=== PATIENT | female | born 1945 | race Caucasian/White ===

== ENCOUNTER → 2016-11-14 | Outpatient (CLI) | payer OTHER ==
[~2016-11-14] MED LIST: ALPR0.25 PO; ASPI-232 PO; B-COTAB18 PO; CHOL100010 PO; CHRO1CAP PO; CRAN1CAP14 PO; DICL-201 PO; LEVO50TA6 PO; LISI-461 PO; LISI5TAB PO; MULT-506 PO; OMEGCAP2 PO; [UNRECOGNIZED DRUG - CODE] PO
== END | disposition home or self-care (01) ==
LOC: C.MAMM 14:15
PROVIDERS: ATTEND Family Medicine
DX: Z78.0 Asymptomatic menopausal state (principal)

== ENCOUNTER → 2016-11-27 | Outpatient (CLI) | payer OTHER | END | disposition home or self-care (01) | LOC: C.RDSM 08:45 | PROVIDERS: ATTEND Physical Medicine & Rehabilitation Sports Medicine | DX: Z96.653 Presence of artificial knee joint, bilateral (principal); M25.561 Pain in right knee; M25.562 Pain in left knee ==

== ENCOUNTER → 2017-03-05 | Outpatient (CLI) | payer OTHER | END | disposition home or self-care (01) | LOC: C.RDSM 09:23 | PROVIDERS: ATTEND Physical Medicine & Rehabilitation Sports Medicine | DX: M25.512 Pain in left shoulder (principal) ==

== ENCOUNTER → 2017-03-08 | Outpatient (CLI) | payer OTHER ==
--- NOTE | 2017-03-08 14:35 | MAMMOGRAPHY REPORT ---
BILATERAL DIGITAL SCREENING MAMMOGRAM WITH CAD: 03/08/2017 CLINICAL HISTORY: Routine screening. TECHNIQUE: Current study was also evaluated with a Computer Aided Detection (CAD) system. Bilateral CC and MLO views were obtained. COMPARISON: Comparison is made to exams dated: 03/06/2016 mammogram, 03/05/2015 mammogram, 03/04/2014 m ammogram, 02/21/2013 mammogram, 02/21/2012 mammogram, and 01/31/2011 mammogram - [facility] enter. BREAST COMPOSITION: The tissue of both breasts is almost entirely fatty. FINDINGS: No suspicious masses, calcifications, or areas of architectural distortion are noted in ei ther breast. There has been no significant interval change compared to prior exams. Scattered bilater al benign-appearing calcifications are not significantly changed. IMPRESSION: ACR BI-RADS CATEGORY 2: BENIGN There is no mammographic evidence of malignancy. A 1 year screening mammogram is recommended. The pa tient will receive written notification of the results. Approximately 10% of breast cancers are not detected with mammography. A negative mammographic report should not delay biopsy if a clinically suggestive mass is present. Rakel Gaytan M.D. /:03/08/2017 12:24:44 Household Appliance Installer: Sonia HOUSER(Sydnie)(M), [facility] letter sent: Normal 1/2 BI-RADS Code: ACR BI-RADS Category 2: Benign
== END | disposition home or self-care (01) ==
LOC: C.MAMM 10:46
PROVIDERS: ATTEND Family Medicine
DX: Z12.31 Encounter for screening mammogram for malignant neoplasm of breast (principal)

== ENCOUNTER → 2017-03-15 | Outpatient (CLI) | payer OTHER ==
[~2017-03-15] MED LIST changes: +GADAVIST IV PRN
--- NOTE | 2017-03-15 10:56 | DIAGNOSTIC IMAGING REPORT ---
FLUOROSCOPIC GUIDED LEFT SHOULDER ARTHROGRAM FLUOROSCOPY TIME: 12 seconds HISTORY: Shoulder pain. IMPINGEMENT L Shoulder, spinal STENOSIS PROCEDURE: After obtaining written informed consent, the patient was placed supine on the fluoroscopy table. A suitable site for needle insertion was marked using fluoroscopic guidance. The left shoulder was prepped and draped in the usual sterile fashion. 1% lidocaine was used for skin, subcutaneous and deep soft tissue anesthesia. Under intermittent fluoroscopic guidance, a 22 gauge 2.5 inch spinal needle was inserted into the left glenohumeral joint. A total of 14 cc of one-to-one mixture of dilute Magnevist (0.1 cc in 10 cc saline) and Optiray 300 were injected. The needle was then removed. There were no apparent complications. The patient was transported to for further imaging. IMPRESSION: Fluoroscopic-guided left shoulder arthrogram without immediate complication. Total injected volume was 14 cc. MR portion of the examination will be dictated separately. Electronically signed by: pAolinar Rowe M.D. 03/15/2017 10:54 AM Dictated Date/Time: 03/15/2017 10:54 AM
--- NOTE | 2017-03-15 11:20 | DIAGNOSTIC IMAGING REPORT ---
LEFT UPPER EXTREMITY JOINT W/ HISTORY: IMPINGMENT L SHOULDER,SPINAL STENOSIS COMPARISON: Left shoulder radiograph 03/05/2017. TECHNIQUE: Multiplanar, multi sequence MRI of the left shoulder was performed following the intra-articular administration of solution containing 0.1 mL Gadavist. FINDINGS: ROTATOR CUFF: There is a high-grade partial to near full-thickness equivalent tear of the articular anterior insertional fibers of the supraspinatus tendon measuring 6 x 7 mm in transverse and AP dimensions respectively (nicely seen on image 8 of the sagittal series and image 15 of the coronal series). There is no associated retraction or muscular atrophy. Additionally, there is moderate to severe tendinopathy with high-grade partial thickness tearing involving the articular fibers of the conjoined and infraspinatus tendon measuring up to 6 x 1.9 cm in transverse and AP dimensions respectively. There is a 5 x 6 x 6 mm calcification within the posterior insertional infraspinatus tendon fibers seen on image 13 of the coronal PD series and also correlated on comparison left shoulder radiographs compatible with infraspinatus calcific tendinosis. There is minimal tendinosis of the subscapularis tendon without full-thickness tear. BICEPS TENDON: The longhead biceps tendon is intact. No evidence of tendinosis. The biceps zena and anchor are intact. LABRUM: There is multifocal irregularity, fraying and degeneration of the labrum, notably within the superior quadrants. No large displaced labral fragment or para labral cyst identified. GLENOHUMERAL JOINT: There is mild to moderate osteoarthritis of the glenohumeral joint with moderate amount of bone marrow edema seen within the anterior superior glenoid. There is no loose body or debris present within the glenohumeral joint. ACROMIOCLAVICULAR JOINT: The AC joint is intact without significant degenerative change or mass effect. No evidence of os acromiale. There is trace amount of subacromial/subdeltoid bursitis. OUTLET SPACES: The suprascapular notch and quadrilateral space are without obstructing or space occupying lesions. BONE MARROW: No focal fracture or marrow occupying lesion. SOFT TISSUES: The periarticular soft tissues are unremarkable. IMPRESSION: 1. High-grade partial to near full-thickness equivalent tear of the anterior insertional fibers of the supraspinatus tendon, 6 x 7 mm with background moderate to severe tendinopathy. No associated retraction or muscle atrophy. 2. Severe tendinopathy of the conjoined and infraspinatus tendon with large irregular high-grade partial-thickness articular sided tear measuring up to 1.9 cm in AP dimension. 3. Calcific tendinosis of the posterior infraspinatus tendon. 4. Focal moderate amount of bone marrow edema within the anterosuperior glenoid is likely degenerative with posttraumatic contusion also in the differential. The above report was generated using voice recognition software. It may contain grammatical, syntax or spelling errors. Electronically signed by: rEnie Qiu 03/15/2017 11:19 AM Dictated Date/Time: 03/15/2017 11:00 AM
== END | disposition home or self-care (01) ==
LOC: C.MRIBC 09:43
PROVIDERS: ATTEND Physical Medicine & Rehabilitation Sports Medicine
DX: M75.42 Impingement syndrome of left shoulder (principal); M48.02 Spinal stenosis, cervical region

== ENCOUNTER → 2017-03-23 | Outpatient (CLI) | payer OTHER ==
[~2017-03-23] MED LIST changes: -CHRO1CAP PO; -CRAN1CAP14 PO; -GADAVIST IV PRN; -LISI-461 PO
[2017-03-23 14:47] LABS: BASO % 0.2 %; BASO ABS # 0.01 K/uL (0-0.2); COMPLETE YES; EOS % 0.7 %; HEMATOCRIT 42.8 % (37-47); IG% 0.2 %; LYMPH % 49.5 %; MEAN CELL VOLUME 93.9 fL (80-100); MEAN CORPUSCULAR HEMOGLOBIN 30.5 pg (25-34); MEAN CORPUSCULAR HGB CONC 32.5 g/dl (32-36); MEAN PLATELET VOLUME 10.7 fL (7.4-10.4); MONO % 5.3 %; NEUT % 44.1 %; PLATELET COUNT 246 K/uL (130-400); RED BLOOD COUNT 4.56 M/uL (4.2-5.4); WHITE BLOOD COUNT 5.86 K/uL (4.8-10.8)
[2017-03-23 15:05] LABS: BLOOD UREA NITROGEN 15 mg/dl (7-18); GLUCOSE 96 mg/dl (70-99)
[2017-03-23 15:06] LABS: BUN/CREATININE RATIO 18.3 (10-20); CALCIUM 10.3 mg/dl (8.5-10.1); CARBON DIOXIDE 30 mmol/L (21-32); CHLORIDE 105 mmol/L (98-107); CREATININE 0.82 mg/dl (0.60-1.20); POTASSIUM 4.2 mmol/L (3.5-5.1); SODIUM 142 mmol/L (136-145)
== END | disposition home or self-care (01) ==
LOC: C.LAB1850 13:49
PROVIDERS: ATTEND Physical Medicine & Rehabilitation Sports Medicine
DX: Z01.818 Encounter for other preprocedural examination (principal)

== ENCOUNTER → 2017-04-17 | Day surgery (SDC) | payer OTHER ==
[2017-03-22 10:31] VITALS: Ht 160 cm; Wt 75.0 kg
[~2017-04-17] VITALS: Ht 160 cm; Wt 75.0 kg
[~2017-04-17] MED LIST changes: +ATROPINE SULFATE 0.1 MG/ML 5ML SYR IV PRN; +BUPIVACAINE/EPINEPHRINE 0.5% MPF 1:200,000 10 ML VIAL ONE; +CEFAZOLIN 2000 MG/60 ML D5W IV SCH; +EpHEDrine SULFATE INJ 50 MG/ML AMP IV PRN; +EpINEphrine HCL INJ 1 MG/ML 5ML SYRINGE ONE; +FENTANYL CITRATE INJ 50 MCG/1 ML 2 ML VIAL IV PRN; +FENTANYL CITRATE INJ 50 MCG/1 ML 2 ML VIAL ONE; +FLUMAZENIL 0.1 MG/1 ML 10 ML VIAL IV PRN; +HYDROmorphone INJ 2 MG/ML SYR/VIAL IV PRN; +LABETALOL HCL IV 5 MG/ML 20ML IV PRN; +LACTATED RINGER'S 1000ML 1,000 ML IV SCH; +LEVOFLOXACIN 500 MG TAB PO SCH; +LIDOCAINE HCL 2% 2 ML VIAL (20MG/ML) ONE; +MEPERIDINE HCL 25 MG/ML CARP IV PRN; +MIDAZOLAM HCL 1 MG/ML 2ML VIAL ONE; +NALOXONE HCL 0.4 MG/1 ML VIAL/CARP IV PRN; +ONDANSETRON INJ 2 MG/ML 2 ML VIAL IV PRN; +OXYCODONE/ACETAMINOPHEN 5-325 TAB PO PRN; +PHENYLEPHRINE 100MCG/ML 5ML SYR IV PRN; +PROPOFOL IV EMULSION 10 MG/ML 20 ML VIAL IV ONE; +ROPIVACAINE 0.5% 5 MG/ML 30 ML VIAL ONE; +SODIUM CHLORIDE 0.9% 1000ML 1,000 ML IV SCH; +SODIUM CHLORIDE 0.9% INJ 10 ML VIAL ONE
--- NOTE | 2017-04-17 06:52 | History & Physical Bridge Note ---
H&P Re-Evaluation Bridge Note: I have examined the patient, reviewed the History & Physical and in the interval since the performance of the History & Physical I have noted the following changes of clinical significance:consent obtained . No changes noted
--- NOTE | 2017-04-17 06:53 | Discharge Instructions ---
Discharge Instructions Date of Service Apr 17, 2017. Visit Reason for Visit: Left Shoulder Rotator Cuff Tear Discharge Discharge Diagnosis / Problem: same Discharge Goals Goal(s): Decrease discomfort, Improve function Medications Stopped Medications Name(s): all meds stopped on 04/12 except for lisinopril and levothyroxine. Restart Stopped Medication(s): resume all meds as scripts direct Activity Recommendations Activity Limitations: as noted below Lifting Limitations: until after follow-up appointment Exercise/Sports Limitations: until after follow-up appointment May Resume Sexual Activity: when tolerated Shower/Bathe: keep incision dry Driving or Machine Use: resume 1 day after discharge Anesthesia . Post Anesthesia Instructions: If you have had General Anesthesia or IV Sedation: * Do not drive today. * Resume driving when surgeon permits. * Do not make important decisions or sign legal documents today. * Call surgeon for: 1. Temperature elevations greater than 101 degrees F. 2. Uncontrollable pain. 3. Excessive bleeding. 4. Persistent nausea and vomiting. 5. Medication intolerance (nausea, vomiting or rash). * For nausea and vomiting use only clear liquids such as: tea, soda, bouillon until nausea subsides, then gradually increase diet as tolerated. * If you have any concerns or questions, call your surgeon's office. If physician is unavailable and it is an emergency, call 911 or go to the nearest emergency room. . Instructions / Follow-Up Instructions / Follow-Up The following are instructions to follow after "Shoulder Surgery" including, Acromioplasty, Rotator Cuff Repair and Instability Surgery ACTIVITY RECOMMENDATIONS: * Minimize activity after surgery. * No excessive walking, jogging, sports or laboring. * Return to activity is individualized depending on the patient and type of surgery. * Driving is not permitted until at least your first post operative visit. Please ask your doctor when it is safe to resume driving. * Expect increased discomfort with increased activity. Continue to ice the shoulder as needed. SCHOOL/WORK RECOMMENDATIONS: * You may return to sedentary work or school when you are feeling more comfortable. This is usually 3-7 days after surgery. MEDICATIONS: * You will have a prescription for pain medication and an anti-inflammatory medication after surgery. * Use the pain medication for severe pain and the anti-inflammatory for less severe pain. Once the pain medication has run out, try to use the anti-inflammatory medication. If this is not effective, contact the office for assistance. * The pain medication may cause nausea, constipation and drowsiness. You should see how they affect you before driving or similar activity. * The anti-inflammatory medication may cause stomach upset and bleeding. If this occurs let your doctor know immediately . * Take a stool softener like Colace or a laxative like Senokot to prevent constipation. DIET: * Resume previous diet. SPECIAL CARE: ICE: You have the option of an ice cooler, gel packs or ice bags. * If you have an ice cooler, refer to the instructions for that device. The ice cooler may be used continuously. * If you do not have an ice cooler, you will need to use ice bags or gel packs. Do not apply ice directly to the skin. Use a thin dressing or anayeli shirt between the skin and ice bag. Apply ice for 20-30 minutes and repeat every 2-4 hours. This is especially important for the first 7-10 days after surgery. Once the pain improves, use ice as needed. ELEVATION: * You may be more comfortable sleeping in an upright position. Use the sling to elevate your arm. DRESSING: * Your dressing will be changed at your first therapy appointment approximately 4-5 days after surgery. Band-aids, tape strips or gauze may be applied. You may then change your dressing daily. * Reapply dressing followed by the EBIce cooling pad (if chosen) and then the sling. * Always wash your hands prior to touching the incision area. * Once the stitches are removed, you may leave the wound open to air or cover with gauze. * Expect some bloody drainage for the first few days after surgery. * Leave the tape strips, if present, in place for 5-7 days. * Band-aids and gauze may be changed daily. * There may be a gauze pad in your armpit area. This can be changed daily or replaced by a dry washcloth. SLING/BRACE: * You will need to use a sling or brace after surgery. The length of time the sling is used is dependent upon the type of surgery performed. * Arthroscopic Acromioplasty requires use of the sling for 2-4 weeks for comfort. * Labral procedures and Rotator Cuff Repairs require use of the sling for a longer period of time. Please check with your doctor prior to discontinuing the sling. BATHING: * You may shower or sponge-bathe immediately after surgery. The post operative shoulder dressing is mostly water-tight. You may shower right over this dressing, but be reasonably careful not to get the gauze or incision wet. * Once the dressing has been changed on the fourth or fifth day after surgery, you may shower and get the incision wet. * Wash with regular soap and water. * Do not bathe (submerge the incision), soak, swim or use a hot tub until the incision is completely healed over with normal skin and the doctor has given the OK to proceed. * There is no need to apply any ointments, powders or salves to your incision. * Do not apply alcohol or hydrogen peroxide directly to the incision. * Diluted peroxide (50:50 mixture with sterile saline) may be used to clean dried blood from around the incision area. THERAPY: * You will begin therapy four or five days after surgery. * Organized therapy with the therapist is important for the first 2-4 months after surgery depending on the type of procedure. During that time you will attend therapy 1-3 times per week. * You will also need to do daily exercises for range of motion and strength as instructed. * Patients who have a Capsular Shift Procedure will need to abide by temporary range of motion limitations. * Patients having Rotator Cuff Surgery are not allowed to actively lift their arms until 4-6 weeks after surgery. * Please check with your doctor regarding appropriate motion restrictions. FOLLOW UP VISIT: * If not already scheduled, please call the office at to schedule a follow-up appointment for 10 days after surgery and monthly thereafter. Diet Recommendations Recommended Home Diet: resume previous diet Procedures Procedures Performed: see op note Pending Studies Studies pending at discharge: no Medical Emergencies . Who to Call and When: Medical Emergencies: If at any time you feel your situation is an emergency, please call 911 immediately. . Non-Emergent Contact Non-Emergency issues call your: Specialist Call Non-Emergent contact if: temperature is above 101.5, wound has increased drainage, wound has increased redness . . "Provider Documentation" section prepared by Jose Christianson. .
--- NOTE | 2017-04-17 08:28 | [facility] Post Operative Brief Note ---
Immediate Operative Summary Operative Date Apr 17, 2017. Pre-Operative Diagnosis Left shoulder rotator cuff disease/gh djd/biceps tendonopathy Post-Operative Diagnosis Same as pre-op Procedure(s) Performed Left Shoulder Examine under Anesthesia, Arthroscopy, Subacromial Debridement, Biceps Tenotomy, Glenoid Humeral debridement Surgeon Dr. Christianson Vice President Financial Surgeon(s) Marcus Silva PA-C Estimated Blood Loss Trace Findings djd/tendonopathy Fluids (cc crystalloids) 700cc Specimens None Drains none Anesthesia block/lma Complication(s) None Disposition Recovery Room / PACU
--- NOTE | 2017-04-17 08:48 | OPERATIVE REPORT ---
DATE OF OPERATION: 04/17/2017 PREOPERATIVE DIAGNOSIS: Chronic left shoulder pain with impingement syndrome, rotator cuff tendinopathy, biceps tendonopathy and glenohumeral arthritis. POSTOPERATIVE DIAGNOSIS: Same. OPERATION PERFORMED: 1. Exam under anesthesia. 2. Diagnostic arthroscopy. 3. Arthroscopic glenohumeral debridement. 4. Arthroscopic biceps tenotomy. 5. Arthroscopic subacromial debridement with light decompression. SURGEON: Dr. Christianson. DATA ANALYST REPORT WRITER: Marcus Silva PA-C. No resident or fellow available. PERIOPERATIVE SITUATION: Medically cleared female with intractable shoulder pain had physical exam, x-ray, and MRI scan consistent with the above diagnosis. At this point in time she is not amenable to joint replacement, wanted to try to see if we can get the shoulder pain to dissipate with minimal intervention. She did have enough tendinopathy in the biceps and the rotator cuff that potentially there could be a tear that could be repaired. She wished to proceed with elective surgery at this point in time with this fashion and this intention. OPERATION AND FINDINGS: OPERATION: The patient appropriately identified, site verified, consent verified, 2 grams of Ancef confirmed as being given. The left shoulder was examined revealing no instability. She had forward flexion to 160 degrees, abduction 155 to 160 degrees, rotation arc 50-60 degrees. There was no instability. She was then placed in a beach chair position and the left upper extremity prepped and draped in usual routine fashion. A posterior portal made 2 cm medial and inferior to posterolateral tip of the acromion, joint entered without difficulty. There was good substance to the cuff. The anterior portal was then made just off the edge of the AC joint. There was marked synovitis. There was marked deformation and change about the superior labrum and the biceps anchor. This was all debrided. The biceps was then released. There was significant articular disease of the superior half of the glenoid and the humeral head. This was all debrided. The inferior half was normal of the glenoid. The majority of the humeral head was normal. The rotator cuff attachment had some minor fraying, PASTA type lesion was debrided but there was good fibers intact from the rotator interval all the way through the posterior cuff. Subacromial space was then entered. There was bursal sided fraying of the rotator cuff. This was debrided with the shaver and thermal device. The CA ligament was frayed. This was debrided with a thermal device. Small hook of the acromion was then incidentally debrided. The bursa was excised. The AC joint was left alone. The cuff was thoroughly inspected with both abduction, adduction, internal and external rotation. There was no full thickness retracted tear. The area of the calcific tendinopathy noted on x-ray was not easily identifiable. It was elected not to take the cuff down to find this. This was based on the amount of degenerative disease noted. The procedure was then terminated. All instruments and fluid were removed. The portals closed with 4-0 nylon, dressed with Xeroform, 4 x 4 gauze, sterile Webril, ABD pads and a bulky dressing. The arm was then placed in a sling. The patient will have sling for comfort and advanced rehab to tolerance. At this point in time, it is unclear whether or not she will need joint replacement in the future, but arthroscopic assessment puts her at a high probability. I attest to the content of the Intraoperative Record and any orders documented therein. Any exception s are noted below.
--- NOTE | 2017-04-17 09:13 | Anesthesia Progress Nt - [facility] ---
Anesthesia Post Op Note Date & Time Apr 17, 2017 at 09:13 Vital Signs Pain Intensity: 0 Vital Signs Past 12 Hours Date Time Temp Pulse Resp B/P (MAP) Pulse Ox O2 Delivery O2 Flow Rate FiO2 04/17/17 09:08 77 18 96 04/17/17 09:08 76 18 04/17/17 09:07 68 6 97 04/17/17 09:07 68 6 04/17/17 09:06 163/79 04/17/17 09:05 68 12 04/17/17 09:05 70 12 98 04/17/17 09:01 161/64 04/17/17 09:00 82 16 100 04/17/17 09:00 81 16 04/17/17 08:59 69 11 100 04/17/17 08:59 70 11 04/17/17 08:56 155/89 04/17/17 08:54 73 15 100 04/17/17 08:54 73 15 04/17/17 08:53 74 13 04/17/17 08:53 73 13 100 04/17/17 08:52 78 17 04/17/17 08:52 80 17 100 04/17/17 08:51 165/80 04/17/17 08:47 70 13 100 04/17/17 08:47 71 13 04/17/17 08:46 164/84 04/17/17 08:42 76 18 04/17/17 08:42 73 18 100 04/17/17 08:41 157/87 04/17/17 08:37 95 14 99 04/17/17 08:37 88 14 04/17/17 08:36 152/81 04/17/17 08:36 36.4 83 12 152/81 95 Mask 8 04/17/17 07:42 0 04/17/17 07:42 12 04/17/17 07:41 74 19 97 04/17/17 07:41 74 04/17/17 07:37 65 04/17/17 07:37 64 15 97 04/17/17 07:36 146/62 04/17/17 07:31 141/64 04/17/17 07:27 58 0 97 04/17/17 07:27 59 3 97 04/17/17 07:26 113/59 04/17/17 07:25 59 04/17/17 07:25 60 0 96 04/17/17 07:24 59 04/17/17 07:24 57 0 96 04/17/17 07:24 59 04/17/17 07:24 57 0 96 04/17/17 07:21 128/65 04/17/17 07:21 128/65 04/17/17 07:16 70 10 194/72 99 04/17/17 07:16 70 10 194/72 99 04/17/17 07:16 60 0 98 04/17/17 07:16 60 0 98 04/17/17 07:06 59 04/17/17 07:06 59 0 96 04/17/17 07:06 59 04/17/17 07:06 59 0 96 04/17/17 07:01 58 0 97 04/17/17 07:01 58 0 96 04/17/17 07:01 58 0 97 04/17/17 07:01 58 0 96 04/17/17 06:51 10 04/17/17 06:51 57 10 04/17/17 06:51 57 10 04/17/17 06:51 10 04/17/17 06:30 36.4 64 16 151/92 (111) 97 Room Air Notes Mental Status: alert / awake / arousable, participated in evaluation Pt Amnestic to Procedure: Yes Nausea / Vomiting: adequately controlled Pain: adequately controlled Airway Patency, RR, SpO2: stable & adequate BP & HR: stable & adequate Hydration State: stable & adequate Anesthetic Complications: no major complications apparent
[2017-04-17 09:24] VITALS: TEMP 36.4
[2017-04-17 10:06] VITALS: BP 135/82; PULSE 75; O2SAT 96
--- NOTE | 2017-04-18 15:35 | [facility] Operative Report ---
Operative Report Operative Date Apr 17, 2017. Pre-Operative Diagnosis Left shoulder rotator cuff disease/gh djd/biceps tendonopathy Post-Operative Diagnosis Left shoulder Same Procedure(s) Performed Left Shoulder Examine under Anesthesia, Arthroscopy, Subacromial Debridement, Biceps Tenotomy, Glenoid Humeral debridement Surgeon Dr. Christianson Flue Blower Surgeon(s) Marcus Silva PA-C Estimated Blood Loss Trace Findings DJD of the glenohumeral joint, biceps tendinopathy, subacromial impingement, partial thickness rotator cuff tear Fluids (cc crystalloids) 700cc Specimens None Drains none Complication(s) None Disposition Recovery Room / PACU Indications This 71-year-old white female presented to the office complaints of left shoulder pain. She had tried conservative care measures including activity modification, anti-inflammatories, and physical therapy without lasting relief. She elected to proceed with surgical intervention after being educated about potential risks and outcomes. Preoperative imaging was obtained. Description of Procedure Patient was administered a regional block and then taken to the operating room where she was given general anesthesia. She was prepped and draped in usual sterile fashion. Please see Dr. Christianson's operative report for specifics of the procedure. I was present for the entire case from initial patient positioning through final wound closure. Assistance was provided and patient positioning, arthroscopy, and final wound closure. Patient was taken to the recovery room in satisfactory condition. I attest to the content of the Intraoperative Record and any orders documented therein. Any exceptions are noted below.
== END | disposition home or self-care (01) ==
LOC: X.SURG 06:08
PROVIDERS: ATTEND Physical Medicine & Rehabilitation Sports Medicine
DX: M75.42 Impingement syndrome of left shoulder (principal); M75.22 Bicipital tendinitis, left shoulder; E03.9 Hypothyroidism, unspecified; I10 Essential (primary) hypertension; F41.8 Other specified anxiety disorders; F41.9 Anxiety disorder, unspecified; Z79.82 Long term (current) use of aspirin; Z79.899 Other long term (current) drug therapy

== ENCOUNTER → 2017-06-11 | Outpatient (CLI) | payer OTHER ==
[~2017-06-11] MED LIST changes: -ATROPINE SULFATE 0.1 MG/ML 5ML SYR IV PRN; -BUPIVACAINE/EPINEPHRINE 0.5% MPF 1:200,000 10 ML VIAL ONE; -CEFAZOLIN 2000 MG/60 ML D5W IV SCH; -EpHEDrine SULFATE INJ 50 MG/ML AMP IV PRN; -EpINEphrine HCL INJ 1 MG/ML 5ML SYRINGE ONE; -FENTANYL CITRATE INJ 50 MCG/1 ML 2 ML VIAL IV PRN; -FENTANYL CITRATE INJ 50 MCG/1 ML 2 ML VIAL ONE; -FLUMAZENIL 0.1 MG/1 ML 10 ML VIAL IV PRN; -HYDROmorphone INJ 2 MG/ML SYR/VIAL IV PRN; -LABETALOL HCL IV 5 MG/ML 20ML IV PRN; -LACTATED RINGER'S 1000ML 1,000 ML IV SCH; -LEVOFLOXACIN 500 MG TAB PO SCH; -LIDOCAINE HCL 2% 2 ML VIAL (20MG/ML) ONE; -MEPERIDINE HCL 25 MG/ML CARP IV PRN; -MIDAZOLAM HCL 1 MG/ML 2ML VIAL ONE; -NALOXONE HCL 0.4 MG/1 ML VIAL/CARP IV PRN; -ONDANSETRON INJ 2 MG/ML 2 ML VIAL IV PRN; -OXYCODONE/ACETAMINOPHEN 5-325 TAB PO PRN; -PHENYLEPHRINE 100MCG/ML 5ML SYR IV PRN; -PROPOFOL IV EMULSION 10 MG/ML 20 ML VIAL IV ONE; -ROPIVACAINE 0.5% 5 MG/ML 30 ML VIAL ONE; -SODIUM CHLORIDE 0.9% 1000ML 1,000 ML IV SCH; -SODIUM CHLORIDE 0.9% INJ 10 ML VIAL ONE
== END | disposition home or self-care (01) ==
LOC: C.RDSM 09:45
PROVIDERS: ATTEND Physical Medicine & Rehabilitation Sports Medicine
DX: M75.42 Impingement syndrome of left shoulder (principal); M19.012 Primary osteoarthritis, left shoulder

== ENCOUNTER → 2017-11-26 | Outpatient (CLI) | payer OTHER | END | disposition home or self-care (01) | LOC: C.RDSM 19:07 | PROVIDERS: ATTEND Physical Medicine & Rehabilitation Sports Medicine | DX: Z96.653 Presence of artificial knee joint, bilateral (principal) ==

== ENCOUNTER → 2018-01-07 | Outpatient (CLI) | payer OTHER ==
--- NOTE | 2018-01-07 09:41 | DIAGNOSTIC IMAGING REPORT ---
R SHOULDER MIN 2 VIEWS HISTORY: 72 years-old Female RIGHT SHOULDER PAIN chronic right shoulder pain. No reported trauma. COMPARISON: Chest radiograph 01/25/2015 TECHNIQUE: 3 views of the right shoulder FINDINGS: Severe degenerative changes of the glenohumeral joint with prominent marginal spurring, subchondral cystic changes and subchondral sclerosis. At least mild degenerative changes about the right AC joint. Caudal marginal spurring involves the acromium. There is no acute fracture or dislocation identified. Possible loose body inferior to the coracoid process measuring 1.2 cm. Imaged lung tripp appear clear. Multilevel endplate spurring about the thoracic spine. Suggested subcentimeter calcified granulomata about the right lung. IMPRESSION: 1. No acute fracture or dislocation. 2. Severe degenerative changes about the right glenohumeral joint. The above report was generated using voice recognition software. It may contain grammatical, syntax or spelling errors. Electronically signed by: Ernie Qiu M.D. 01/07/2018 9:39 AM Dictated Date/Time: 01/07/2018 9:37 AM
== END | disposition home or self-care (01) ==
LOC: C.RDSM 14:53
PROVIDERS: ATTEND Physician Assistant
DX: M25.511 Pain in right shoulder (principal)

== ENCOUNTER 2025-03-11 06:24 | Observation (INO) ==
--- NOTE | 2025-02-17 14:54 | PAT Medication Instructions ---
Medication Instructions Date of Service February 17, 2025 Home Medications Medication Instructions Recorded lisinopril 5 mg tablet 5 mg PO QAM #90 tabs 07/15/24 levothyroxine 50 mcg tablet 50 mcg PO QAM #90 tabs 10/15/24 omega 4-sca-scc-fish oil 1,000 mg (120 mg-180 mg) capsule (Fish Oil) 1 cap PO QPM vitamin B complex 1 tab PO QAM aspirin 81 mg capsule 81 mg PO QAM ondansetron HCl 8 mg tablet 8 mg PO TID PRN Nausea lisinopril 5 mg tablet 5 mg PO QAM levothyroxine 50 mcg tablet 50 mcg PO QAM cholecalciferol (vitamin D3) 125 mcg (5,000 unit) tablet (Vitamin D3) 125 mcg PO QAM diclofenac sodium 75 mg tablet,delayed release 75 mg PO QAM lactase 3,000 unit tablet (Lactaid) 3,000 unit PO AC PRN Lactose Intolerance rosuvastatin 5 mg tablet 5 mg PO 3XWK Continue as directed rosuvastatin 5 mg tablet 5 mg PO 3XWK ASK your surgeon for instructions diclofenac sodium 75 mg tablet,delayed release 75 mg PO QAM ASK your prescriber and surgeon aspirin 81 mg capsule 81 mg PO QAM STOP taking 2 weeks before surgery (or as soon as possible if surgery is within 2 weeks) omega 0-hbk-pwc-fish oil 1,000 mg (120 mg-180 mg) capsule (Fish Oil) 1 cap PO QPM DO NOT take the morning of surgery vitamin B complex 1 tab PO QAM lisinopril 5 mg tablet 5 mg PO QAM cholecalciferol (vitamin D3) 125 mcg (5,000 unit) tablet (Vitamin D3) 125 mcg PO QAM lactase 3,000 unit tablet (Lactaid) 3,000 unit PO AC PRN Lactose Intolerance Take morning of surgery With a small sip of water, OTHERWISE NOTHING TO EAT OR DRINK AFTER MIDNIGHT: ondansetron HCl 8 mg tablet 8 mg PO TID PRN Nausea (if needed) levothyroxine 50 mcg tablet 50 mcg PO QAM Take evening before surgery ondansetron HCl 8 mg tablet 8 mg PO TID PRN Nausea (if needed) lactase 3,000 unit tablet (Lactaid) 3,000 unit PO AC PRN Lactose Intolerance (if needed) Other Notes If you have any questions please call us at [phone] or [phone] or [phone] or [phone]
--- NOTE | 2025-02-18 14:07 | Anesthesiology Consultation ---
Date of Service February 18, 2025 Assessment & Plan (1) Encounter for pre-operative examination: Plan - awaiting medical and cardiology clearances. - she reported while palpitations are still infrequent she has noticed them more especially at night in recent months. She denies associated chest discomfort, shortness of breath, dizziness or lightheadedness. She feels it may be related to anxiety/stress given recent snf. Her pre-op EKG while still uncon firmed, is also abnormal. She denies currently following with cardiology. Workload note sent to [place] PCP given surgeon ordered medical clearance. Case discussed in detail with Dr. Azevedo who advised patient will also need cardiology clearance. I spoke with patient who requested form be sent to Dr. Marley Burgess. Optimization form to be sent to that office. Patient states she is picking up antibiotic for UTI today as per surgeon's office. Chart Review Chart Review: Pending: Refer to Additional Notes / Consult section and Patient seen in Pre Admission Testing Teaching & Discussion Pre-Anesthesia Teaching/Discussion Notes: Instructed NPO after midnight before surgery, except medications with 15 cc of water. Medication instructions provided according to the PAT guidelines. History Surgery Operation Date: 03/04/25 09:10 Proposed Procedures p Left Total Hip Arthroplasty - Jose Christianson MD Height/Weight Height: 5 ft 2 in Weight: 70.2 kg Allergies Allergy/AdvReac Type Severity Reaction Status Date / Time lactose Allergy Intermediate Diarrhea Verified 02/17/25 09:36 adhesive Allergy Mild REDNESS ON Verified 02/17/25 09:36 SKIN WITH SOME TAPE IF ON LONG prednisone AdvReac Severe WEIRD Verified 02/17/25 09:36 FEELING, DIZZY, NAUSEA tetracycline AdvReac Severe WEIRD Verified 02/17/25 09:36 FEELING & DIZZINESS simvastatin AdvReac Intermediate MUSCLE Verified 02/17/25 09:36 ACHES Medications Home Medications Medication Instructions Recorded Confirmed Last Taken omega 9-gul-evl-fish oil 1,000 mg 1 cap PO QPM ##0 02/11/15 02/17/25 05/21/18 08:00 (120 mg-180 mg) capsule (Fish Oil) vitamin B complex 1 tab PO QAM ##0 02/11/15 02/17/25 05/21/18 08:00 aspirin 81 mg capsule 81 mg PO QAM 11/26/23 02/17/25 Unknown ondansetron HCl 8 mg tablet 8 mg PO TID PRN Nausea 11/26/23 02/17/25 Unknown lisinopril 5 mg tablet 5 mg PO QAM #90 tabs 07/15/24 02/17/25 Unknown levothyroxine 50 mcg tablet 50 mcg PO QAM #90 tabs 10/15/24 02/17/25 Unknown cholecalciferol (vitamin D3) 125 125 mcg PO QAM 02/17/25 02/17/25 Unknown mcg (5,000 unit) tablet (Vitamin D3) diclofenac sodium 75 mg 75 mg PO QAM 02/17/25 02/17/25 Unknown tablet,delayed release lactase 3,000 unit tablet (Lactaid) 3,000 unit PO AC PRN Lactose 02/17/25 02/17/25 Unknown Intolerance rosuvastatin 5 mg tablet 5 mg PO 3XWK 02/17/25 02/17/25 Unknown Past Medical History Medical History Anxiety Bradycardia Depression Hypertension controlled, stable per pt Hypothyroidism IBS (irritable bowel syndrome) Mild mitral insufficiency Mixed hyperlipidemia Osteoarthritis Palpitations chronic, infrequent-some increase with recent stress in recent months at night; denies associated lightheadedness or dizziness Sleep apnea states was told it was very mild sleep apnea and she pursued recommend intentional weight loss Urinary frequency Urinary incontinence chronic Vertigo chronic, infrequent Patient denies h/o stroke, seizures, heart attack, heart failure, DM, blood clots/DVTs or blood transfusions. Exercise / Class Metabolic Activity III < 4 Walking/Shop/Light housework (ambulates with cane, denies chest discomfort or shortness of breath with usual activities) Past Family History Family History Mother Lung disease Hypertension Father Diabetes Heart disease Myocardial infarction Hypertension Brother Lung disease Hypertension Sister Diabetes Hypertension Grandmother Myocardial infarction Other No family history of adverse response to anesthesia Past Surgical History Surgical History (Updated 02/18/25 @ 15:08 by Teresa Cueto PA-C) History of adenoidectomy History of amputation right third long toe; secondary to hammertoe deformity History of cataract surgery bilateral History of dilatation and curettage History of tonsillectomy History of total knee replacement bilat at separate times-awareness during neuraxial anesthesia-denies awareness during surgery S/P shoulder replacement (05/2018) right Past Anesthesia History No Family Hx of Anesthesia Complications History of PONV No Hx of PONV and No Hx of Motion Sickness Social History Smoking Status: Former smoker Do You Dip or Chew Tobacco: No Smoking End Date: quit in high school Hx Alcohol Use: Yes Alcohol type: wine alcohol intake frequency: holidays/special occasions only Hx Substance Use: No substance use type: does not use Review of Systems Patient denies chest pain, shortness of breath, dyspnea on exertion, reflux, fever, chills, cough, or wheezing. Physical Exam Vital Signs Vitals BP 106/50 P 56 TEMP 98.0 SP02 95% on RA RESP 18 Physical Patient resting comfortably in chair in no acute distress, alert and oriented, responding appropriately throughout visit Full cervical extension range of motion without pain TMD 3 finger breadths Mallampati Score 3 Dentition: intact, denies chipped or loose teeth, caps/crowns, implants or bridges Lungs: normal respiratory effort. Good air movement, clear throughout to auscultation, no adventitious breath sounds Cardiac: regular rate and rhythm, no murmurs noted Carotid arteries: negative bruit bilat Lab Results Anesthesia Preop Results Results Anesthesia Widget: WBC 7.00 K/ul (4.8-10.8) 02/18/25 Hgb 12.3 g/dl (12.0-16.0) 02/18/25 Hct 35.9 % (37.0-47.0) L 02/18/25 Plt 204 K/uL (130-400) 02/18/25 Na 138 mmol/L (136-145) 02/18/25 K 5.2 mmol/L (3.5-5.1) H 02/18/25 Cl 105 mmol/L (98-107) 02/18/25 CO2 27 mmol/L (21-32) 02/18/25 BUN 20 mg/dl (6-23) 02/18/25 Creat 0.81 mg/dl (0.6-1.2) 02/18/25 Glucose Level 94 mg/dl (70-99(Fasting)) 02/18/25 PT 10.1 Seconds (9.0-12.0) 02/18/25 PTT 27 Seconds (21-31) 02/18/25 INR 0.9 (0.9-1.1) 02/18/25 Urine Color Dark Yellow 02/18/25 Urine Appearance Clear (Clear) 02/18/25 Urine pH 6.0 (4.5-7.5) 02/18/25 Urine Specific [place] 1.027 (1.000-1.030) 02/18/25 Urine Protein Negative (Negative) 02/18/25 Urine Glucose (UA) Negative (Negative) 02/18/25 Urine Ketones Trace (Negative) H 02/18/25 Urine Blood Negative (Negative) 02/18/25 Urine Nitrite Negative (Negative) 02/18/25 Urine Bilirubin Negative (Negative) 02/18/25 Urine Urobilinogen Negative (Negative) 02/18/25 Urine Leukocyte Esterase 2+ (Negative) H 02/18/25 Urine WBC (Auto) 0-5 /hpf (0-5) 02/18/25 Urine RBC (Auto) 3-5 /hpf (0-2) H 02/18/25 Urine Hyaline Casts (Auto) 3-5 /lpf (0-2) H 02/18/25 Urine Epithelial Cells (Auto) 6-10 /hpf (0-2) H 02/18/25 Urine Bacteria (Auto) 1+ (None Seen) H 02/18/25 Blood Type A Positive 02/18/25 Antibody Screen NEGATIVE 02/18/25 Testing Laboratory Results Surgeon's office made aware of abnormal UA. Electrocardiogram Date: 02/18/25 Sinus bradycardia with sinus arrhythmia, rate 46 bpm T wave abnormality, consider inferior ischemia T wave abnormality, consider anterolateral ischemia T wave inversion more evident in anterior leads vs 05/06/18 EKG Chest X-Ray Date: 02/18/25 No acute findings. Stress Test Date: 03/07/19 Normal nuclear part of Lexiscan nuclear stress test. No evidence of ischemia or infarction. Normal LVEF and normal wall motion.
--- NOTE | 2025-03-11 05:30 | History & Physical Bridge Note ---
Date of Service March 11, 2025 History & Physical Bridge Note I have examined the patient, reviewed the History & Physical and in the interval since the performance of the History & Physical I have noted the following changes of clinical significance: Consent and site verified none instability infection and leg length inequality emphasized as potential complications. No changes noted
[~2025-03-11 06:24] MED LIST changes: -ALPR0.25 PO; -ASPI-232 PO; -B-COTAB18 PO; +BUPIVACAINE 0.5 % 5 MG/1 ML PF 10ML VIAL ONE; -CHOL100010 PO; -DICL-201 PO; -LEVO50TA6 PO; +LIDOCAINE 2% 2 ML VIAL/AMP(20MG/ML) INFIL ONE; -LISI5TAB PO; +MIDAZOLAM HCL 1 MG/ML 2ML VIAL ONE; -MULT-506 PO; -OMEGCAP2 PO; +PROPOFOL IV EMULSION 10 MG/ML 20 ML VIAL IV ONE; -[UNRECOGNIZED DRUG - CODE] PO
[2025-03-11] MEDS: LR 60ML/HR IV SCH (06:58)
[2025-03-11] MEDS: LR 500ML BOLUS, THEN 15ML/HR IV SCH (06:58)
[2025-03-11] MEDS ORDERED: ONDANSETRON INJ 2 MG/ML 2 ML VIAL IV PRN (08:03)
[2025-03-11] MEDS ORDERED: ATROPINE SULFATE 0.1 MG/ML 10ML SYR IV PRN (08:03)
[2025-03-11] MEDS: TRANEXAMIC ACID 1,000 MG **IV Pre-op IV SCH (08:24)
[2025-03-11] MEDS ORDERED: ePHEDrine sulfate 50 MG/5 ML SYR ONE (09:11)
[2025-03-11] MEDS: ORTHO JOINT ANESTHETIC ONE (09:11)
[2025-03-11] MEDS ORDERED: PHENYLEPHRINE 100MCG/ML 5ML SYR ONE (09:17)
[2025-03-11] MEDS: ROPIV 0.5% 246mg, Ketorolac 30mg, EPINEPHrine 0.5mg in NSS INFIL SCH (10:03)
--- NOTE | 2025-03-11 10:16 | Post Operative Brief Note ---
Immediate Post Op Note Date of Surgery March 11, 2025 Pre & Post Diagnosis Operation Date: 03/11/25 08:50 <No data on this case meets the specified criteria> Osteoarthritis left hip pre and postop diagnosis same with large gluteus medius tear 1 cm retraction left hip I identified the patient and participated in the time-out.: Yes Procedure Operation Date: 03/11/25 08:50 <No data on this case meets the specified criteria> Noncemented left total placement gluteus medius repair Surgeon Jose Christianson MD Fish Cleaner Machine Tender Cali/Shira Estimated Blood Loss 100 Findings Consistent with Post-Op Diagnosis Significant osteoarthritis marked deformity of the hip large gluteus medius tear 3 cm in width with 1 cm retraction Fluids 1200 cc Complications None
--- NOTE | 2025-03-11 10:21 | Operative Report ---
Post Operative Report Pre & Post Diagnosis Operation Date: 03/11/25 08:50 <No data on this case meets the specified criteria> Osteoarthritis left hip preop diagnosis Postop diagnosis osteoarthritis left hip with large gluteus medius tear with 3 cm in width 1 cm retraction left hip I identified the patient and participated in the time-out.: Yes Procedure Operation Date: 03/11/25 08:50 <No data on this case meets the specified criteria> Noncemented left total replacement primary repair gluteus medius tear 3 cm in width Surgeon Jose Christianson MD Lab Engineer Cali/Shira Estimated Blood Loss 100 Findings Consistent with Post-Op Diagnosis Osteoarthritis labral tearing gluteus medius tearing significant 3 cm x 1 cm Fluids 1200 cc Specimens Bone pathology Drains None Complications None Indications Severe pain end-stage x-rays Description of Procedure After the patient was appropriate bite site verified consent verified antibiotics confirmed to be given appropriate position all things padded well the left lower extremity was prepped and draped use routine fashion with the patient in the right lateral decubitus position. Markers were placed on both malleoli and the right patella. Posterior approach made sharp section carried through skin blunt dissection down to fascia this was incised under direct vision. Once the fascia was retracted 1 can see the tear in the gluteus medius. This area was then debrided and then ultimately repaired to drill holes at the end of the case. #2 Vicryl was utilized. The short external rotators were released. Looks like the nerve actually split the piriformis and was quite close to the surgical site and carefully retracted. Capsule was then open the hip was dislocated the femoral neck resected. Excellent exposure of the acetabulum was obtained. The labrum was excised serial reaming was then carried out to a size 50 and a 50 cup impacted in the appropriate positioning. It was then secured with a 6 x 5 x 20 screw with the tip of the screw just penetrating there was no excessive penetration this was palpated. Some osteophytes were resected and then the dual mobility liner was placed. It was elected to use dual mobility based on her hip abductor pathology. Femur was then flexed internally rotated care to protect the sciatic nerve and the proximal femur. With the wooden box maker canal finder lateralizing rasp and serial broaching up to a size 3 standard stem. Trial reduction was carried out as excellent stability in all planes leg lengths were excellent. +4 neck length was appropriate. Trial almond was then removed from the femur was appropriately irrigated and the permanent stem and head seated and then the hip reduced and closed drill holes were made through the trochanter to repair the gluteus medius this was also utilized to repair the piriformis and the capsule. Care was taken to protect the sciatic nerve was visualized during the entire repair. There was no undue t ension on it. The wound was irrigated with Pulsavac Betadine and then closed in layers using #2 Vicryl 2-0 Vicryl and stainless steel clips appropriate dressing applied the patient transferred recovery in satisfactory addition he tolerated the procedure well. Summary of implants 50 acetabular shell sector cup 6.5 x 20 screw 50/43 dual mobility liner 43/22 poly 22+4 head metal and a size 3 standard femoral stem. EBL was 100 cc crystalloid was 1200 cc DVT PE prophylaxis will begin tomorrow. was contacted immediate following the procedure. I attest to the content of the Intraoperative Record and any orders documented therein. Any exceptions are noted below.
--- NOTE | 2025-03-11 10:21 | Orthopedic Progress Note ---
Date of Service March 11, 2025 Orthopedic Progress Note Patient underwent elective left total replacement. Tolerated the procedure well. Denies chest pain shortness of breath fever chills nausea vomiting headache. Vital signs are stable she is afebrile. X-ray pending. contacted. Keshawn.
--- NOTE | 2025-03-11 10:23 | Discharge Summary ---
Date of Service March 12, 2025 Admission HPI Per Admitting Provider Osteoarthritis left hip Principal Diagnosis Osteoarthritis left hip status post left hip replacement noncemented and gluteus medius repair Discharge Data Allergies Allergy/AdvReac Type Severity Reaction Status Date / Time lactose Allergy Intermediate Diarrhea Verified 03/11/25 06:44 adhesive Allergy Mild REDNESS ON Verified 03/11/25 06:44 SKIN WITH SOME TAPE IF ON LONG prednisone AdvReac Severe WEIRD Verified 03/11/25 06:44 FEELING, DIZZY, NAUSEA tetracycline AdvReac Severe WEIRD Verified 03/11/25 06:44 FEELING & DIZZINESS simvastatin AdvReac Intermediate MUSCLE Verified 03/11/25 06:44 ACHES Vaccinations None Consultations None Procedures Performed Operation Date: 03/11/25 08:50 <Noncemented left hip replacement gluteus medius repair Ordered Studies X-rays bone pathology Hospital Course (1) History of left hip replacement: Continue care plan for total hip replacement intact abductors. Left lower extremity. (2) Tear of tendon of left lower extremity: Total Time Total Time Spent Total Time Spent (In Minutes): 5 Discharge Plan Discharge Items Reason For Visit: DJD Hip Left Follow-up/Referrals: Jacques Hsu MD [Primary Care Provider] - Medications and DC Order Prescriptions: No Action vitamin B complex Tablet 1 tab PO QAM Qty: 0 omega 9-uwz-zei-fish oil [Fish Oil] 1,000 mg (120 mg-180 mg) Capsule 1 cap PO QPM Qty: 0 lisinopril 5 mg tablet 5 mg PO QAM Qty: 90 3RF levothyroxine 50 mcg tablet 50 mcg PO QAM Qty: 90 3RF rosuvastatin 5 mg tablet 5 mg PO 3XWK Qty: 45 3RF Rx Instructions: 5 mg orally on Sunday, Sunday, and Sunday; aspirin 81 mg capsule 81 mg PO QAM ondansetron HCl 8 mg tablet 8 mg PO TID PRN (Reason: Nausea) cholecalciferol (vitamin D3) [Vitamin D3] 125 mcg (5,000 unit) Tablet 125 mcg PO QAM diclofenac sodium 75 mg tablet,delayed release (DR/EC) 75 mg PO QAM lactase [Lactaid] 3,000 unit Tablet 3,000 unit PO AC PRN (Reason: Lactose Intolerance) Rx Instructions: administer with first bite of dairy food Admission Data Admit Date/Time: 03/11/25 10:32 Attending Provider: Jose Christianson Admit Provider: Jose Christianson Primary Care Provider: Jacques Hsu.
--- NOTE | 2025-03-11 10:23 | Operative Report ---
Post Operative Report Pre & Post Diagnosis Operation Date: 03/11/25 08:50 Pre-op diagnosis: Osteoarthritis left hip Postop diagnosis: Same with large gluteus medius tear 1 cm retraction left hip I identified the patient and participated in the time-out.: Yes Procedure Operation Date: 03/11/25 08:50 Procedure: Left total hip arthroplasty with gluteus medius repair Surgeon Jose Christianson MD Hunter Guide Cali/Shira Estimated Blood Loss 100 Findings Consistent with Post-Op Diagnosis Specimens Left femoral head Description of Procedure Patient was brought to the operative suite where she underwent anesthesia. She was placed in right lateral decubitus position. Patient underwent a left total hip arthroplasty. Please see Dr. Christianson's operative report for full details. I was present and assisted with patient positioning, limb positioning, soft tissue retraction, hemostasis, hardware implantation, wound closure, postoperative dressing placement. The patient was taken to the recovery room in stable condition. I attest to the content of the Intraoperative Record and any orders documented therein. Any exceptions are noted below.
--- NOTE | 2025-03-11 10:36 | Operative Report ---
Post Operative Report Pre & Post Diagnosis Operation Date: 03/11/25 08:50 Pre-Op Diagnosis: Left Hip Degenerative Joint Disease Post-Op Diagnosis: Left Hip Degenerative Joint Disease I identified the patient and participated in the time-out.: Yes Procedure Operation Date: 03/11/25 08:50 Actual Procedures p Left Total Hip Arthroplasty (Uncemented) with Repair of Gluteus Medius Tendon Tear(Left) - Jose Christianson MD Surgeon SCOOTER Christianson MD Police Officer Booking Cali/Shira ROBERTO Estimated Blood Loss 100 Findings Consistent with Post-Op Diagnosis see operative report Specimens see operative report Drains none Complications none Disposition Accompanied Patient To Recovery: Yes Indications This 79 year old female presented to the office with complaints of persisting left hip pain. She had tried conservative care measures, including activity modification and OTC medications, without improvement. She elected to proceed with surgical invention after being educated about potential risks and outcomes. Preoperative imaging was obtained. Description of Procedure The patient was administered a spinal anesthetic and then taken to the operating room where she was given sedation. She was prepped and draped in the usual sterile fashion. Please see Dr. Christianson's operative report for specifics of the procedure. I was present for the entire case from initial patient positioning through final wound closure. Assistance was provided in tissue retraction, hemostasis, trial implant placement, final implant placement, and final wound closure. The patient was taken to the recovery room in satisfactory condition. I attest to the content of the Intraoperative Record and any orders documented therein. Any exceptions are noted below.
--- NOTE | 2025-03-11 10:44 | XRay Report ---
XR pelvis 1-2V routine CLINICAL HISTORY: S/P L SHAKILA COMPARISON: 02/16/2025 FINDINGS: Left hip prosthesis shows no hardware complication. There is expected soft tissue gas. Ski n mustapha are present. IMPRESSION: Unremarkable postoperative exam. ACT 112: Negative or not required by law. Electronically signed by: Fabiano Ingram M.D. 03/11/2025 10:43 AM
--- NOTE | 2025-03-11 11:10 | Anesthesiology Progress Note ---
Date of Service March 11, 2025 Anesthesia Post Procedure Vital Signs Vital Signs: Temp Pulse Pulse Resp BP Pulse Ox O2 Del Method 03/11/25 11:05 36.3 C L 68 14 122/55 L 98 Room Air 03/11/25 10:55 66 12 127/53 L 97 Room Air 03/11/25 10:45 72 18 126/59 L 97 Room Air 03/11/25 10:35 74 20 128/63 100 Oxymask 03/11/25 10:25 72 18 127/50 L 100 Oxymask 03/11/25 10:18 36 C L 65 12 111/43 L 99 Oxymask 03/11/25 06:45 36.5 C 76 18 129/69 98 Room Air O2 Flow Rate 03/11/25 11:05 03/11/25 10:55 03/11/25 10:45 03/11/25 10:35 3 03/11/25 10:25 3 03/11/25 10:18 6 03/11/25 06:45 Notes Mental Status: alert / awake / arousable Patient Amnestic to Procedure: Yes Nausea / Vomiting: adequately controlled Pain: adequately controlled Airway Patency, RR, SpO2: stable & adequate BP & HR: stable & adequate Hydration State: stable & adequate Neuraxial Anesthesia: was administered and sensory block is resolving Anesthetic Complications: no major complications apparent
[2025-03-11] MEDS ORDERED: VANCOMYCIN CONSULT ACTIVE PRN (11:56)
[2025-03-11] MEDS ORDERED: MAGNESIUM HYDROXIDE SUSP 30 ML UDC PO PRN (11:56)
[2025-03-11] MEDS ORDERED: diphenhydrAMINE 50 MG/ML VIAL IV PRN (11:56)
[2025-03-11] MEDS ORDERED: ALUMINUM/MAGNESIUM SUSP 30 ML UDC PO PRN (11:56)
[2025-03-11] MEDS ORDERED: NALOXONE HCL 0.4 MG/1 ML VIAL/CARP IV PRN (11:56)
[2025-03-11] MEDS ORDERED: LACTASE 3000 UNIT TAB PO PRN (11:56)
[2025-03-11] MEDS ORDERED: HYDROmorphone INJ 0.5 MG/0.5 ML SYR IV PRN (11:56)
--- NOTE | 2025-03-11 13:25 | Orthopedic Progress Note ---
Date of Service March 11, 2025 Assessment & Plan Admission and Anticipated Discharge Date Admission Date: March 11, 2025 Orthopedic Progress Note Afternoon rounds. Patient is sitting up in bed. Denies chest pain shortness of breath fever chills nausea vomiting or headache. Wound dressing clean dry and intact. Hip is located. Femoral sciatic nerve function is returned she has active dorsi and plantarflexion of her ankle which is at least grade 4 in knee extension which is at least grade 4. Postop x-rays look excellent. Assessment overall doing well continue care pathway. Mobilize to chair and ambulate weightbearing as tolerated left lower extremity with walker. Initiate anticoagulation tomorrow.
[2025-03-11] MEDS: KETOROLAC TROMETHAMINE 15 MG/ML VIAL IV SCH (13:32)
[2025-03-11] MEDS: VANCOMYCIN HCL 1,000 MG in SODIUM CHLORIDE 0.9% 250 ML IV ONE (13:32)
[2025-03-11] MEDS: ACETAMINOPHEN 500 MG TAB PO SCH (13:33)
[2025-03-11] MEDS: ROSUVASTATIN CALCIUM 5 MG TAB PO SCH (13:34)
[2025-03-11] MEDS: SODIUM CHLORIDE 0.9% 1,000 ML IV SCH (13:36)
[2025-03-11] MEDS: SENNA 8.6 MG TAB PO SCH (20:13)
[2025-03-11] MEDS: DOCUSATE SODIUM 100 MG CAP PO SCH (20:13)
[2025-03-12] MEDS: LEVOTHYROXINE SODIUM 50 MCG TABLET PO SCH (05:40)
[2025-03-12 05:56] LABS: Hematocrit (blood only) 34.9 % (37.0-47.0); Hemoglobin 12.0 g/dl (12.0-16.0); Immature Granulocytes # (auto) 0.03 K/uL (0.01-0.20); Immature Granulocytes % (auto) 0.4 %; Mean Corpuscular Hemoglobin 32.1 pg (25.0-34.0); Mean Corpuscular Volume 93.3 fL (80.0-100.0); Platelet Count 163 K/uL (130-400); RDW Standard Deviation 45.5 fL (36.4-46.3); Red Blood Count 3.74 M/uL (4.20-5.40); White Blood Count 8.03 K/ul (4.8-10.8)
[2025-03-12 06:16] LABS: Anion Gap 6.0 (3-11); Blood Urea Nitrogen 17.0 mg/dl (6-23); Calcium 8.7 mg/dl (8.6-10.3); Carbon Dioxide 27.0 mmol/L (21-32); Chloride 105.0 mmol/L (98-107); Creatinine Clr Calc Pharmacy 59.3 ml/min; Glucose 126.0 mg/dl (70-99(Fasting)); Potassium 4.3 mmol/L (3.5-5.1); Sodium 138.0 mmol/L (136-145)
[2025-03-12] MEDS: ONDANSETRON INJ 2 MG/ML 2 ML VIAL IV PRN (06:39)
--- NOTE | 2025-03-12 07:16 | Orthopedic Progress Note ---
Date of Service March 12, 2025 Assessment & Plan Admission and Anticipated Discharge Date Admission Date: March 11, 2025 Orthopedic Progress Note Postop day #1 status post left total replacement. Patient doing well. Gets intermittent queasiness. Denies any vomiting or dry heaves. Vital signs are stable she is afebrile. Neurovascular check femoral sciatic nerve is normal. Wound dressing is changed. Wound is clean and dry. Neurovascular check femoral sciatic nerve is normal. Calves nontender. Hematocrit stable 34. Assessment doing well continue care pathway adjust pain medication to try to eliminate any type of nausea or feeling of queasiness from that. Initiate anticoagulation today. Discharge to home after PT OT.
[2025-03-12] MEDS: dexAMETHasone 10 MG in SYRINGE 0 ML IV SCH (07:34)
[2025-03-12] MEDS: APIXABAN 2.5 MG TAB PO SCH (07:35)
[2025-03-12] MEDS: MULTIVITAMIN TAB PO SCH (07:35)
[2025-03-12] MEDS: ASPIRIN 81 MG ECTAB PO SCH (07:35)
[2025-03-12] MEDS: METOCLOPRAMIDE HCL INJ 5 MG/ML 2 ML VIAL IV PRN (10:22)
[2025-03-12 11:22] VITALS: BP 174/82; PULSE 71; RESP 16; TEMP 97.9; O2SAT 98
[2025-03-12] MEDS: ONDANSETRON 4 MG OD TAB PO STA (11:59)
--- NOTE | 2025-03-13 11:42 | Orthopedic Consultation ---
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 Was doing well at home until several hours ago when she felt lightheaded and had a large amount of melena. She did have some bloating earlier and some lower GI pain. She has no history of having GI bleeds. She did take a dose of Eliquis last night. She is awake and alert denies any chest pain shortness of breath fever chills nausea or vomiting. Vital signs are stable at present. Neurovascular check femoral sciatic nerve is normal. Hip is located. She has good active extension of her foot and ankle knee extension and hip flexion easily to 60 degrees. Logrolling is supple without any pain. Laboratory work is as noted. She did have some fecal staining of her dressing. This was appropriately change. Wound looks clean there is no problems with that. X-rays taken of her hip do not reveal any issue. Assessment unfortunate GI bleed and recent postop total hip patient. At this point I believe mechanical DVT PE prophylaxis while in bed needs to get up of mobilize as much as possible pending her hemodynamic capabilities. Will need to avoid any type of GI stress or blood thinner at this point in time such as aspirin or Eliquis. Will need to go purely mechanical at this point. Discussed with patient. Discussed with her . Water proof dressing placed. Is very important that if she has any type of upper or lower endoscopy that hip protection from postural indiscretion is provided. Need to keep her hip AB ducted and in neutral position did not flex or extend past neutral and do not internally rotate at all.
[2025-03-13] MEDS ORDERED: PIPERACILLIN/TAZOBACTAM 4.5 GM/100 ML BAG IV ONE (11:45)
== END 2025-03-12 12:08 | disposition home health service (06) | DRG 470 ==
LOC: ASU 06:24 → 3E 10:32 → INTOOBSV 10:32